=== PATIENT | male | born 1990 | race Two or more races ===

== ENCOUNTER 2019-07-26 00:48 | Emergency (ER) | payer SELFPAY ==
[~2019-07-26] VITALS: Ht 188 cm; Wt 90.0 kg
[2019-07-26] MEDS ORDERED: DEXAMETHASONE 4MG TABLET PO ONE (02:15)
[2019-07-26] MEDS ORDERED: PROCHLORPERAZINE MALEATE 10MG TABLET PO ONE (02:15)
[2019-07-26] MEDS ORDERED: DIPHENHYDRAMINE 25MG CAPSULE PO ONE (02:15)
[2019-07-26] MEDS ORDERED: KETOROLAC 60MG/2ML VIAL IM ONE (02:15)
[2019-07-26 02:30] LABS: HEMOGLOBIN 13.5 g/dL (14.0-18.0); MEAN CORPUSCULAR HEMOGLOBIN 29.8 pg (28.0-32.0); MEAN CORPUSCULAR VOLUME 86.4 fL (80.0-94.0); PLATELET 229 x1000/uL (130-400); RED BLOOD CELL COUNT 4.51 mill/uL (4.7-6.1); RED CELL DISTRIBUTION WIDTH 14.4 % (11.6-14.6)
[2019-07-26 02:45] LABS: CHLORIDE 106 mEq/L (98-107)
[2019-07-26 03:34] VITALS: BP 125/80
[2019-07-26] MEDS ORDERED: LITH150C PO (09:12)
== END 2019-07-26 03:35 | disposition home or self-care (01) ==
LOC: ER 00:48
DX: G43.909 Migraine, unspecified, not intractable, without status migrainosus (principal); F43.10 Post-traumatic stress disorder, unspecified; F90.9 Attention-deficit hyperactivity disorder, unspecified type; Z91.018 Allergy to other foods
CPT/HCPCS: 36415; 80053; 80178; 85027; 96372; 99284; J1885; J8540; Q0163; Q0164

== ENCOUNTER 2019-07-26 09:08 | Emergency (ER) | payer SELFPAY ==
[~2019-07-26] VITALS: Ht 175.3 cm; Wt 68.0 kg
[2019-07-26] MEDS ORDERED: LITH150C PO (09:12)
[2019-07-26] MEDS ORDERED: LORAZEPAM 1MG TABLET PO ONE (09:45)
[2019-07-26 10:18] LABS: CLARITY URINE CLEAR (CLEAR); COLOR URINE YELLOW (YELLOW); KETONES URINE 1+ (NEGATIVE); LEUKOCYTE ESTERASE URINE NEGATIVE (NEGATIVE); NITRITE URINE NEGATIVE (NEGATIVE); OCCULT BLOOD URINE NEGATIVE (NEGATIVE); PH URINE 7.5 (4.5-8.0); PROTEIN URINE NEGATIVE (NEGATIVE); SPECIFIC GRAVITY URINE 1.016 (1.005-1.030); UROBILINOGEN URINE 0.2 E.U./dL (0.2-1.0)
[2019-07-26 10:23] LABS: HEMATOCRIT. 41.1 % (42.0-52.0); HEMOGLOBIN. 14.2 g/dL (14.0-18.0); MEAN CORPUSCULAR HEMOGLOBIN 29.7 pg (28.0-32.0); MEAN CORPUSCULAR VOLUME 86.2 fL (80.0-94.0); MEAN PLATELET VOLUME 7.5 fl (7.4-10.4); PLATELET 243 x1000/uL (130-400); RED BLOOD CELL COUNT 4.77 mill/uL (4.7-6.1); RED CELL DISTRIBUTION WIDTH 14.2 % (11.6-14.6)
[2019-07-26 10:31] LABS: CHLORIDE 104 mEq/L (98-107)
[2019-07-26 10:36] VITALS: BP 134/73
[2019-07-26 10:37] LABS: ETHANOL BLOOD < 10 mg/dL
[2019-07-26 10:39] LABS: *AMPHETAMINES SCREEN URINE NEGATIVE (NEGATIVE); *BARBITURATES SCREEN URINE NEGATIVE (NEGATIVE); *BENZODIAZEPINES SCREEN URINE NEGATIVE (NEGATIVE); *COCAINE SCREEN URINE NEGATIVE (NEGATIVE); METHADONE URINE SCREEN NEGATIVE (NEGATIVE); OPIATES URINE SCREEN NEGATIVE (NEGATIVE)
[2019-07-26 10:40] LABS: CANNABINOID URINE SCREEN NEGATIVE (NEGATIVE); PHENCYCLIDINE URINE SCREEN NEGATIVE (NEGATIVE)
[2019-07-26 11:19] LABS: PLATELET ESTIMATE NORMAL
== END 2019-07-26 11:56 | disposition home or self-care (01) ==
LOC: ER 09:08
DX: F41.1 Generalized anxiety disorder (principal); R00.2 Palpitations; F31.9 Bipolar disorder, unspecified; F43.10 Post-traumatic stress disorder, unspecified; Z91.018 Allergy to other foods
CPT/HCPCS: 36415; 71045; 80053; 80305; 80307; 80320; 80329; 81003; 84443; 84484; 85025; 93005; 99285; G0480